=== PATIENT | male | born 1980 | race Caucasian/White ===

== ENCOUNTER → 2018-08-30 | Outpatient (CLI) | payer OTHER ==
--- NOTE | 2018-08-30 14:34 | RADIOLOGY REPORT (SQ) ---
EXAM DESCRIPTION: MRI RT UPPER JOINT WITHOUT COMPLETED DATE/TIME: 08/30/2018 1:45 pm REASON FOR STUDY: RIGHT SHOULDER PAIN (M25.511) M25.511 PAIN IN RIGHT SHOULDER R93.2 ABNORMAL FIND INGS ON DX IMAGING OF LIVER AND BILIARY T COMPARISON: None. TECHNIQUE: Right shoulder images acquired and stored on PACS. Multiplanar imaging to include fat sen sitive sequences such as T1, water sensitive sequences such as FST2/STIR, cartilage sensitive sequenc es such as FSPD/gradient-echo sequences. LIMITATIONS: None. FINDINGS: BONE MARROW AND CORTEX: Small subcortical cyst posterior right humeral head greater tubero sity. JOINT OR BURSAL EFFUSION: Trace fluid in the subacromial/subdeltoid bursa. GLENO-HUMERAL ARTICULATION: Normal articulation. No subluxation. No cystic change. No osteophytes or cartilage loss. ACROMION AND AC JOINT: Type 2 acromion No down-sloping or distal spur. Sub-acromial space maintaine d. No significant AC joint arthropathy. ROTATOR CUFF AND INTERVAL: There is minimal undersurface tendinopathy of the distal supraspinatus ten don anterior edge. infraspinatus, subscapularis are intact. No rotator interval tear. No rotator interval thickening to suggest adhesive capsulitis. LABRUM AND BICEPS LABRAL COMPLEX: There are multiple tacks with ferromagnetic artifact along the crump perior labrum from prior labral repair. Small superior labrum with increased intrinsic signal. No p aralabral cysts. REMAINDER OF LABRUM AND IGHL : No gross tear or paralabral cyst formation. Labral evaluation is less than optimal without joint distention. No thickening of IGHL to suggest adhesive capsulitis. PERIARTICULAR AND ADJACENT SOFT TISSUES: No masses or abnormal nodes. OTHER: No other significant finding. IMPRESSION: Post intact left superior labral repair. Trace subacromial/subdeltoid bursa fluid with minimal anterior edge supraspinatus tendinopathy TECHNICAL DOCUMENTATION: JOB ID: [id number]- All Rights Reserved Reading location - IP/workstation name: [email or web address]
--- NOTE | 2018-08-30 14:58 | RADIOLOGY REPORT (SQ) ---
EXAM DESCRIPTION: MRI ABDOMEN COMBO COMPLETED DATE/TIME: 08/30/2018 1:45 pm REASON FOR STUDY: ABDNORMAL FINDINGS ON DX IMAGING OF LIVER AND BILIARY TRACT (R93.2) M25.511 PAIN IN RIGHT SHOULDER R93.2 ABNORMAL FINDINGS ON DX IMAGING OF LIVER AND BILIARY T COMPARISON: REPORT FROM abdominal ultrasound 07/13/2018 TECHNIQUE: Multiplanar multisequence imaging performed without and with contrast including sagittal, axial and coronal T2, axial T1, axial gradient fat sat T1, axial, sagittal and coronal fat sat T1 po st contrast. CONTRAST TYPE AND DOSE: 20 mL Dotarem. RENAL FUNCTION: Not indicated. ACR Type II contrast agent associated with few, if any, unconfounded cases of NSF LIMITATIONS: None. FINDINGS: LIVER: Normal size. No masses. No dilated ducts. CBD normal. There is mild diffuse fatty infiltration of the liver with focal sparing along the dorsal half of the left lobe liver segment 2. This area of focal sparing measures about 6 cm transverse by 4 cm AP x 4 cm craniocaudad. Normal c ontrast enhancement post gadolinium. SPLEEN: Normal size. No focal lesions. PANCREAS: No masses. No adjacent inflammation or peripancreatic fluid collections. Pancreatic duct no t dilated. GALLBLADDER: No masses. No stones. No gallbladder wall thickening or pericholecystic fluid. ADRENAL GLANDS: No significant masses or asymmetry. RIGHT KIDNEY AND URETER: No masses. No hydronephrosis. LEFT KIDNEY AND URETER: No masses. No hydronephrosis. AORTA AND VESSELS: No aneurysm. No dissection. Renal arteries, SMA, celiac without stenosis. RETROPERITONEUM: No retroperitoneal adenopathy, hemorrhage or masses. BOWEL: Not well seen ABDOMINAL WALL AND PERITONEUM: No hernias. No free fluid. BONES: No acute or significant findings. OTHER: No other significant finding. IMPRESSION: Focal sparing of fatty infiltration of the liver, correlates with ultrasound report from 07/13/2018. No worrisome liver masses. TECHNICAL DOCUMENTATION: JOB ID: [id number]- All Rights Reserved Reading location - IP/workstation name: [email or web address]
== END ==
LOC: RAD 11:24
PROVIDERS: ATTEND Nurse Practitioner Family
DX: M25.511 Pain in right shoulder (principal); R93.2 Abnormal findings on diagnostic imaging of liver and biliary tract; I11.9 Hypertensive heart disease without heart failure; M54.5 Low back pain; M25.572 Pain in left ankle and joints of left foot; M25.562 Pain in left knee; M25.571 Pain in right ankle and joints of right foot; M25.561 Pain in right knee; Z72.0 Tobacco use
CPT/HCPCS: 73221; 74183; A9576